=== PATIENT | female | born 1975 | race Caucasian/White ===

== ENCOUNTER 2021-01-30 00:43 | Emergency (ER) | payer OTHER ==
[~2021-01-30] VITALS: Ht 170.2 cm; Wt 99.8 kg
[2021-01-30 00:50] VITALS: BP 127/77
[2021-01-30] MEDS ORDERED: IBUPROFEN 600 MG TAB PO STA (00:58)
[2021-01-30 02:24] VITALS: BP 127/77
== END 2021-01-30 02:28 | disposition home or self-care (01) ==
LOC: MED 00:43
DX: S80.02XA Contusion of left knee, initial encounter (principal); S90.02XA Contusion of left ankle, initial encounter; F10.129 Alcohol abuse with intoxication, unspecified; V49.9XXA Car occupant (driver) (passenger) injured in unspecified traffic accident, initial encounter; Y93.89 Activity, other specified; Y92.89 Other specified places as the place of occurrence of the external cause; Y99.8 Other external cause status; Y90.9 Presence of alcohol in blood, level not specified
CPT/HCPCS: 73562; 73590; 73610; 99284